=== PATIENT | female | born 1990 | race Caucasian/White ===

== ENCOUNTER 2017-08-26 08:35 | Emergency (ER) | payer SELFPAY ==
[2017-08-26 08:37] VITALS: BP 149/97; PULSE 100; RESP 16; TEMP 37; O2SAT 93; BMI 36.3
[2017-08-26] MEDS: Ondansetron 4 MG/2 ML Vial IV (09:11)
[2017-08-26 09:13] LABS: Absolute Lymphocyte Count 2.71 X10^3/ul (0.83-4.51); Basophil# 0.03 X10^3/uL; Basophil% 0.4 % (0-1); Eosinophils% 1.2 % (0-5); Hematocrit 39.2 % (37-47); Hemoglobin 12.3 g/dl (12.0-15.0); Lymphocyte # 2.71 X10^3/ul (4.0); Lymphocyte % 31.7 % (19-41); Mean Corp Hgb Conc 31.4 g/gl (32-36); Mean Corpuscular Hgb 25.7 pg (27.0-32.0); Mean Corpuscular Volume 81.8 fL (81-99); Mean Platelet Vol. 10.6 fl (6.2-12.0); Monocyte# 0.75 X10^3/uL; Monocyte% 8.8 % (0-10); Neutrophil # 4.95 X10^3/uL (2.7-7.7); Neutrophil % 57.8 % (47-70); Platelet Count 293 K/mm3 (150-450); RBC Distribution Width SD 44.8 fl (35.1-43.9); Red Blood Count 4.79 M/mm3 (4.2-5.4); White Blood Count 8.6 K/mm3 (4.4-11.0)
[2017-08-26 09:14] LABS: POSITIVE COUNT NO; POSITIVE DIFFERENTIAL NO; POSITIVE MORPHOLOGY NO
[2017-08-26 09:28] LABS: Anion Gap 9 (5-15); BUN 16 mg/dL (7-18); BUN/Creat Ratio 24.6 RATIO (10-20); Calcium,Total 8.7 mg/dL (8.5-10.1); Chloride 106 mmol/L (98-107); Creatinine, Serum 0.65 mg/dL (0.55-1.02); EST Glomerular Filtration Rate 116 mL/min (>60); Est Glom Filt Rate - Afr Amer 140 mL/min (>60); Estimated Creatinine Clearance 116.98 ml/min; Glucose 108 mg/dL (74-106); Potassium 4.1 mmol/L (3.5-5.1); Sodium Level 138 mmol/L (136-145)
--- NOTE | 2017-08-26 09:36 | ED.DCSUM_ITS ---
- ER Visit Summary Date of Service: 08/26/17 Chief Complaint: Left lower quadrant abdominal/inguinal pain that started 2 days ago History of Present Illness: The patient is a 27 F who presents with left lower quadrant abdominal pain/inguinal pain that started 2 days ago. She has had some pain in the low back/flank area. The pain is described as achy with moments of sharp intense pain. She denies dysuria, frequency, dysuria but does report urgency. She denies history of renal ureterolithiasis. Last menses was not normal. She is sexually active. She has been once with a miscarriage at 5 months. There is no history of endometriosis, ovarian cyst, ectopic or STD. She denies history of trauma or any skin lesions or rash. There is no history of irritable bowel syndrome, inflammatory bowel disorder or blood or mucus in her stool. She does report history of constipation. She denies history of diverticulosis diverticulitis. She denies prior episode. She denies fever, chills night sweats. She denies any ocular, visual auditory symptoms. Denies weight gain or weight loss. She denies any cardiac respiratory symptoms. Physical Examination: Vital signs are remarkable for blood pressure 149/97. Patient has a depressed affect. After I entered the room she began to cry/have tears in her eyes. Head is atraumatic normocephalic. Pupils are equal round reactive. Extraocular muscles are intact. TMs are pearly white with landmarks noted. Nares patent with no drainage. Posterior pharynx without erythema or exudate. Uvula is midline. There is no dysphonia or dysphasia. Trachea is midline. There is no stridor with auscultation of the neck. Heart is regular without murmur, gallop or rub. S1 and S2 are normal. Lungs are clear to auscultation with good movement of air bilaterally. Abdomen is remarkable for tenderness in the left lower quadrant with equivocal left CVA tenderness. There is no guarding or rebound tenderness. Bowel sounds are present diminished. There is no evidence of umbilical inguinal hernia. There is no inguinal lymphadenopathy. There are no lesions to suggest herpes varicella- zoster. Test Results: CBC is normal. BMP is essentially normal with slight elevation of glucose of 108. Urine dip positive for leukoesterase, nitrites and blood. Micro revealed pyuria with bacteria and is a good specimen. Since she complained of frequency and urgency will treat as UTI suspect subclinical pyelonephritis because she complained of left CVA tenderness. Emergency Department Course and Treatment: To evaluate patient's left lower quadrant pain will obtain test since her incision was not normal. CBC and BMP were obtained in the event that a CT needed to be performed. Urine to assess for infection and possibility of renal/ureterolithiasis. Treatment Plan: Patient received a dose of Naprosyn for her discomfort since she declined opiate analgesia. She was given Zofran for her nausea. She will receive IV Rocephin and discharged with prescription for ciprofloxacin. She was instructed to follow-up with her primary care physician Dr. Castrejon in 3 days to assure that the bacteria is sensitive to the antibiotic prescribed. Disposition: Discharged to home with spouse after infusion of Rocephin Impression: Pyelonephritis, acute This note was generated with ScaleGrid dictation software. It may contain incorrect words, spelling, and punctuation that were not noted in review of the chart prior to signing ED Disposition - Plan for ED Patient: Disposition: Home or Assisted Living Chief Complaint: Abd Pain Instructions: ED Kidney Infec Female Prescriptions: Ciprofloxacin HCl 500 mg PO BID #20 tab Naproxen [Naprosyn] 500 mg PO BID #10 tab Referrals: Care Physician,No Primary [Primary Care Provider] - Anamaria Castrejon MD [STAFF PHYSICIAN] - 3-5 Days
[2017-08-26 09:38] LABS: Pregnancy, Serum, hCG Quali. NEGATIVE Negative (0-9 Nonpreg)
[2017-08-26] MEDS: Naproxen 250 MG Tablet 500 MG PO (09:48)
[2017-08-26 09:52] LABS: Mucous, Urine 0 SEEN /hpf (<or=2+)
[2017-08-26 09:57] LABS: Color, Urine Yellow (Yellow); Glucose, Dipstick Normal (Normal); Ketone-Dipstick Negative (Negative); Leukocyte Esterase-Dipstick 100 /ul (Negative); Nitrite-Dipstick Positive (Negative); Occult Blood-Urine 10 /ul (Negative); Protein-Dipstick Negative (Negative); Specific Gravity, Urine 1.015 (1.002-1.030); Urine Bilirubin Dipstick Negative (Negative); Urine Clarity Sl. Cloudy (Clear); Urine Urobilinogen Normal (Normal)
[2017-08-26 10:11] LABS: Bacteria 2+ /hpf (None Seen); Squamous Epithelial Cells - UA 0-5 SEEN /hpf (5-10)
[2017-08-26 10:12] LABS: Red Blood Cells-Urine 0-5 SEEN /hpf (0-5); White Blood Cells 10-25 SEEN /hpf (0-5)
--- NOTE | 2017-08-26 10:46 | ED.VISSUMM ---
- ER Visit Summary Date of Service: 08/26/17 Chief Complaint: [] History of Present Illness: The patient is a 27 F [] Physical Examination: [] Test Results: [] Emergency Department Course and Treatment: [] Treatment Plan: [] Disposition: [] Impression: [] This note was generated with [employer] dictation software. It may contain incorrect words, spelling, and punctuation that were not noted in review of the chart prior to signing ED Disposition - Plan for ED Patient: Disposition: Home or Assisted Living Chief Complaint: Abd Pain Instructions: ED Kidney Infec Female Prescriptions: Ciprofloxacin HCl 500 mg PO BID #20 tab Naproxen [Naprosyn] 500 mg PO BID #10 tab Referrals: Care Physician,No Primary [Primary Care Provider] - 3-5 Days
[2017-08-26 11:30] VITALS: BP 153/89; PULSE 94; RESP 14; O2SAT 99
== END 2017-08-26 11:37 | disposition home or self-care (01) ==
PROVIDERS: Emergency Provider Emergency Medicine
DX: N10 Acute pyelonephritis (principal); R73.9 Hyperglycemia, unspecified; E66.9 Obesity, unspecified; Z72.0 Tobacco use
CPT/HCPCS: 80048; 81001; 84703; 85025; 87086; 87088; 96365; 96375; 99283; A4216; J2405; J3490

== ENCOUNTER 2018-02-12 16:17 | Emergency (ER) | payer SELFPAY ==
[2018-02-12 16:17] VITALS: BP 152/95; PULSE 117; RESP 16; TEMP 36.6; O2SAT 93; BMI 34.6
[2018-02-12] MEDS: Naproxen 500 MG Tablet PO (16:40)
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
[2018-02-12 17:42] VITALS: BP 143/90; PULSE 81; RESP 16
== END 2018-02-12 17:43 | disposition home or self-care (01) ==
LOC: ED 17:07
PROVIDERS: Emergency Provider Emergency Medicine
DX: S29.012A Strain of muscle and tendon of back wall of thorax, initial encounter (principal); S39.012A Strain of muscle, fascia and tendon of lower back, initial encounter; V43.52XA Car driver injured in collision with other type car in traffic accident, initial encounter; Y93.9 Activity, unspecified; Y92.481 Parking lot as the place of occurrence of the external cause; Y99.9 Unspecified external cause status; G80.9 Cerebral palsy, unspecified
CPT/HCPCS: 72072; 72100; 99283

== ENCOUNTER 2019-09-21 01:53 | Inpatient (IN) | payer SELFPAY ==
[2019-09-21] VITALS (10 sets, daily range): BP systolic 148–164; BP diastolic 90–101; PULSE 86–118; RESP 18–28; TEMP 35.7–37; O2SAT 88–95; BMI 35.1
--- NOTE | 2019-09-21 02:01 | ED.RN ---
CALLED FOR EKG PER RN REQUEST, PULLED OLD EKGS FOR
--- NOTE | 2019-09-21 02:18 | RAD_ITS ---
STUDY: X-RAY CHEST REASON FOR EXAM: Female, 29 years old. COUGH AND SOB X 2 days TECHNIQUE: Single AP portable view of the chest. COMPARISON: 10/19/2011. FINDINGS: There is mild scarring at the right lung base versus atelectasis. Remainder of the lungs are clear and expanded. There is no demonstrated pleural abnormality. Normal size heart. Normal mediastinum and сергей. Normal visualized pulmonary arteries. Normal visualized aortic arch and descending thoracic aorta. Normal visualized thoracic spine. Normal visualized ribs, clavicles, and shoulders. There is no demonstrated abnormality of the visualized soft tissue structures of the upper abdomen. RAD/Chest 1 View (Portable) IMPRESSION: Mild scarring versus atelectasis at the right lung base, otherwise normal x-ray examination of the chest. Electronically Signed: Felipa Morales MD at 2:58 EDT , Service support ,
--- NOTE | 2019-09-21 02:18 | EKG12_ITS ---
Test Reason : SOB Blood Pressure : / mmHG Vent. Rate : 109 BPM Atrial Rate : 109 BPM P-R Int : 126 ms QRS Dur : 078 ms QT Int : 328 ms P-R-T Axes : 076 091 046 degrees QTc Int : 441 ms Sinus tachycardia Rightward axis Borderline ECG Confirmed by GRICELDA REYES, ELIE ([id number]), acquisition editor DAMION POLANCO ([id number] on 09/27/2019 2:00:26 PM Referred By: SPRING Confirmed By:BARB MADISON MD
[2019-09-21] MEDS: Acetaminophen 500 MG Tablet 1000 MG PO (02:26)
[2019-09-21] MEDS: Ondansetron 4 MG/2 ML Vial IV ×2 (02:26→11:48)
[2019-09-21 02:27] LABS: Absolute Neutrophil Count 9.9 X10^3/uL (2.0-7.7); Basophil# 0.09 X10^3/uL; Basophil% 0.6 % (0-1); Eosinophil# 0.21 X10^3/uL; Eosinophils% 1.4 % (0-5); Hematocrit 44.5 % (37-47); Hemoglobin 13.8 g/dL (12.0-15.0); Lymphocyte % 23.2 % (19-41); Mean Corpuscular Hgb 25.2 pg (27.0-32.0); Mean Corpuscular Volume 81.4 fL (81-99); Mean Platelet Vol. 11.2 fl (6.2-12.0); Monocyte# 1.27 X10^3/uL; Monocyte% 8.4 % (0-10); NRBC Flagged by Analyzer 0 % (0-5); Neutrophil # 9.94 X10^3/uL (2.7-7.7); Neutrophil % 66.1 % (47-70); Platelet Count 338 K/mm3 (150-450); RBC Distribution Width CV 15.6 % (11.6-14.6); RBC Distribution Width SD 45.5 fl (35.1-43.9); Red Blood Count 5.47 M/mm3 (4.2-5.4); White Blood Count 15.1 K/mm3 (4.4-11.0)
--- NOTE | 2019-09-21 02:28 | ED.VISSUMM ---
- ER Visit Summary Date of Service: 09/21/19 Chief Complaint: Cough History of Present Illness: The patient is a [address] Holland. She reports that she has rhinorrhea and congestion for the past 2 days. She has had a sore throat and diaphoresis. States that she has a cough began yesterday is productive yellow sputum without blood. She denies any fever or chills. She reports that she has severe shortness of breath at worst and mild currently. Patient reports that her boyfriend at home is ill as well. 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 She denies sick contacts at work. No recent travel. Patient denies any abdominal pain. However, she has been nauseated and vomited 4 times. No blood in her emesis. Her last bowel movements today. No melena medication. Her last menstrual period was September 03. She complains of generalized weakness. Physical Examination: Vitals: 98.6, 153/101, 118, 24, 88% on room air which is hypoxic. General: Well-nourished and well-developed. Head: Normocephalic atraumatic. Neck: Supple, no lymphadenopathy. No JVD. Nontender. Cardiovascular: Tachycardic regular rhythm. No murmurs. Respiratory: Mild respiratory distress. Clear to auscultation bilaterally. Abdominal: Soft, nontender, nondistended, normal bowel sounds. No guarding, rebound, or peritoneal signs. Back: Nontender. Extremities: Nontender, no edema. Skin: Normal color, no rash. Neurologic: Alert and oriented ?3. Cranial nerves II through XII are intact. Normal strength and sensation. Psych: Normal affect. Test Results: EKG is sinus tach at [address] changes. Influenza is negative. test is negative. Chem-7 shows a chloride of 109, BUN of 20, glucose 147. CBC shows a white count of 15.1. Clinical Impression(s) from Imaging Studies Chest X-Ray 09/21/19 02:18 IMPRESSION: Mild scarring versus atelectasis at the right lung base, otherwise normal x-ray examination of the chest. Electronically Signed: Felipa Morales MD at 2:58 EDT , Service support , Emergency Department Course and Treatment: Patient had an IV placed. She was given Zofran IV. She was given Tylenol p.o. She was placed on 2 L nasal cannula and her pulse ox is currently 94%. She is resting more comfortably. Treatment Plan: Patient has been working, but only known sick contact is her boyfriend. However, there is concerned that she may have been exposed to COVID-19. She is hypoxic and will be admitted to the hospital for further evaluation and treatment. Disposition: Admitted in improved condition. Impression: 1. URI. 2. Hypoxia. 3. Suspected COVID-19. This note was generated with [employer] dictation software. It may contain incorrect words, spelling, and punctuation that were not noted in review of the chart prior to signing ED Disposition - Plan for ED Patient: Disposition: Acute [facility]
[2019-09-21 02:44] LABS: Anion Gap 7 (5-15); BUN 20 mg/dL (7-18); BUN/Creat Ratio 25.6 RATIO (10-20); Calcium,Total 9.3 mg/dL (8.5-10.1); Chloride 109 mmol/L (98-107); Creatinine, Serum 0.78 mg/dL (0.55-1.02); EST Glomerular Filtration Rate 93 mL/min (>60); Est Glom Filt Rate - Afr Amer 112 mL/min (>60); Estimated Creatinine Clearance 95.76 ml/min; Glucose 147 mg/dL (74-106); Potassium 4.2 mmol/L (3.5-5.1); Sodium Level 138 mmol/L (136-145)
[2019-09-21 02:49] LABS: Internal QC Validated? YES +Cl - CLEAR BKGD; Lactic Acid 1.1 mmol/L (0.4-1.9); Pregnancy, Serum, hCG Quali. NEGATIVE Negative
--- NOTE | 2019-09-21 03:23 | HP.PCM_ITS ---
Problem List (1) Viral illness Status: Acute History of Present Illness Date of Admission: 09/21/19 Chief Complaint: shortness The patient is a 29 year old F with a significant history of tobacco abuse; cerebral palsy; hydrocephalus; obesity and GERD who presents at the emergency department with progressively worsening shortness of breath that started few hours before presentation. In the last 2 days she had nasal congestion; rhinorrhea; sore throat; night sweats; nausea and vomiting as well as productive cough. Cough is productive occasionally for yellow sputum. She describes her vomiting as posttussive emesis. At emergency department patient was found to be hypoxic with oxygen saturation of 88% with ambulation. Oxygen saturation improved to 95% with 2 L of oxygen at rest. Chest x-ray showed mild scarring versus atelectasis at the right lung base. 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 Her boyfriend has similar symptoms except that her boyfriend has not had shortness of breath. Patient lives in [place], [place]. She denies any recent travel. She denies knowingly coming in to contact with anybody with COVID 19 virus. Past Medical History Medical History: Medical History (Last Reviewed 09/21/19 @ 04:[address] Doug Bonner MD) Cerebral palsy G80.9 Hydrocephalus G91.9 Allergies Opioids - Morphine Analogues Adverse Reaction (Verified 09/21/19 02:01) Nausea/Vom/Diarrhea Home Medications: Ambulatory Orders Medication Instructions Recorded Omeprazole Magnesium [Prilosec Otc] 20 mg PO DAILY 09/21/19 Surgical History: cholecystectomy, - - Elbow surgery Lives: Alone Smoking Status: Current every day smoker Tobacco Use: Cigarettes - *Family History Maternal History Items: Heart Disease, - - Narcolepsy Paternal History Items: - - Patient does not know paternal medical history Review of Systems Constitutional: Reports: Anorexia, Chills, Malaise. Denies: Fever, Weight Change HEENT: Reports: Sinus Congestion, Sinus Drainage, Sore Throat. Denies: Head Aches Cardiovascular: Denies: Chest Pain, Palpitations Respiratory: Reports: Cough, Shortness of Breath, Sputum production Gastrointestinal: Reports: Nausea, Vomiting. Denies: Abdominal Pain Genitourinary: Denies: Dysuria Musculoskeletal: Denies: Joint Pain, Joint Tenderness Skin: Denies: Rash, Wounds Neurological: Denies: Numbness, Tingling, Focal weakness Psychiatric: Reports: Anxiety. Denies: Depression, Homicidal Ideations, Suicidal Ideations Hematologic/ Lymphatic: Denies: Easy Bruising, Easy Bleeding VTE Information - Inpt Only VTE Present on Admission: No VTE Mechan Device Prophylaxis: SCD's, None VTE Pharm Prophylaxis ordered?: No Patient Problems: Active and Suspected Problems (Last Updated 09/21/19 @ 04:[address] Doug Bonner MD) Viral illness (Acute) - Physical Exam Vitals/I&O's: Vital Signs Temp Pulse Resp BP Pulse Ox 98.6 F 111 H 28 H 163/92 H 95 09/21/19 02:02 09/21/19 02:02 09/21/19 02:06 09/21/19 02:02 09/21/19 02:06 Oxygen Flow Rate (L/min) 3 Oxygen Delivery Method Nasal Cannula Weight: 95.8 kg Body Mass Index (BMI) 35.1 General: Alert, Oriented x3, Cooperative HEENT: Atraumatic, PERRLA, EOMI, Normocephalic Neck: Supple, No JVD, Negative Carotid Bruits Lungs: Clear to auscultation, Normal air movement Cardiovascular: Normal S1, Normal S2, No murmurs, Tachycardic Abdomen: Bowel Sounds Present, Soft, Non Tender Extremities: No edema, Capillary Refill Less than 3 Seconds Skin: No rashes, No breakdown Musculoskeletal: No Tenderness to Palpation of Joints or Extremities Neurological: Cranial nerves II-XII grossly intact Psych/Mental Status: Normal Affect, Appropriate Microbiology Past 72 Hours 09/21/19 02:25 Mucosa - Nose Influenza Types A,B Direct FA (JOSÉ LUIS) - Final Laboratory Results 09/21/19 02:12: WBC 15.1 H, RBC 5.47 H, Hgb 13.8, Hct 44.5, MCV 81.4, MCH 25.2 L , MCHC 31.0 L, RDW Std Deviation 45.5 H, RDW Coeff of Margarita 15.6 H, Plt Count 338, MPV 11.2, Immature Gran % (Auto) 0.300, Neut % (Auto) 66.1, Lymph % (Auto) 23.2, [place] % (Auto) 8.4, Eos % (Auto) 1.4, Baso % (Auto) 0.6, Absolute Neuts (auto) 9.9 H, Absolute Lymphs (auto) 3.50, Nucleated RBC % 0 09/21/19 02:12: Sodium 138, Potassium 4.2, Chloride 109 H, Carbon Dioxide 22.0, Anion Gap 7, BUN 20 H, Creatinine 0.78, Estim Creat Clear Calc 95.76, Est GFR (MDRD) Af Amer 112, Est GFR (MDRD) Non-Af 93, BUN/Creatinine Ratio 25.6 H, Glucose 147 H, Calcium 9.3 09/21/19 02:12: Lactic Acid 1.1 09/21/19 02:12: Serum , Qual NEGATIVE Assessment/Plan All Active Problems (Last Updated 09/21/19 @ 04:[address] Doug Bonner MD) Viral illness (Acute) The patient is a 29 year old F with a significant history of tobacco abuse; cerebral palsy; hydrocephalus; obesity and GERD presents emergency department with progressively worsening shortness of breath that started few hours before presentation; nasal congestion; rhinorrhea; sore throat; nausea and vomiting; productive cough; hypoxia; and chest x-ray finding of atelectasis versus scarring consistent with acute viral illness. Acute viral illness Cannot rule out COVID 19 at this time. Rapid influenza screen at emergency department was negative. A comprehensive viral PCR is pending. We will get a ferritin level; triglyceride and procalcitonin level. Consider COVID 19 testing if a comprehensive viral PCR is negative and other markers point towards COVID 19 Symptomatic treatment with Mucinex; oxygen supplementation as needed. Incentive spirometer ordered Tylenol PRN and antiemetics PRN with Zofran. Trend CBC and BMP We will admit to covid19 cohorts floor on droplet precautions. GERD PPI continued Obesity: Complicates care. Recommend lifestyle modification. DVT prophylaxis Subcutaneous Lovenox Essential Procedure Criteria Procedure Essential: No Inpatient E&M: 30422 Init Hosp L3
[2019-09-21 04:21] LABS: Ferritin 45 ng/mL (8-252); Triglycerides 246 mg/dL
[2019-09-21 04:27] LABS: Procalcitonin 0.09 ng/mL (0.00-0.09)
[2019-09-21] MEDS: guaiFENesin 1,200 MG Tablet 1200 MG PO ×2 (05:24→09:27)
--- NOTE | 2019-09-21 09:14 | CASEMGMT ---
Social Work Note Pt is listed as self-pay. SW reviewed chart. 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 PFS saw pt. Per PFS, pt declined self-pay program, pt was provided HCAP application and pt is not eligible for medicaid. SW to continue to follow if any financial needs arise. Esthela James HOME STEREO EQUIPMENT INSTALLER, HI LIFT OPERATOR
[2019-09-21] MEDS: Acetaminophen 325 MG Tablet 650 MG PO (09:27)
[2019-09-21] MEDS: Pantoprazole Sodium 20 MG Tablet PO (09:27)
[2019-09-21] MEDS: 0.9% Saline Lock 10 ML Syringe IV (11:48)
--- NOTE | 2019-09-21 12:56 | CASEMGMT ---
RN CM ASSESSMENT Pt in isolation precautions. RN CM assessment completed via phone call to pt at this time. Introduced self and role of RN CM and pt agreeable to assessment at this time. PCP: Dr Holland Specialists: None Preferred Pharmacy: [facility] Retail Insurance: None. Pt has been seen by PFS. Prescription Benefit: None. Prescription Discount card given to pt's RNNelly, to give to pt. Living Will/HPOA: States does not have LW or HCPOA . Pt made Given Social Service rac card to RNNelly, to give to pt with number to call if chooses in the future to utilize [facility] social work for advanced directive completion. LNOK: Mother, Myriam Lou Living Arrangements: Lives with her BF and her BF's daughter in 2-story apartment. Was independent prior to hospitalization. 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 Transportation: Pt states drives self and states no transportation concerns at this time. DME: Denies using any DME and denies needs. HHC/SNF: No history of either. Pt wishes to return home and states has no concerns with going home at time of discharge. CM to follow for home oxygen needs and any further discharge planning/needs. Pt voices no further concerns/needs at this time. Advised pt to ask for CM if any further questions/concerns/needs arise. Voices understanding. PLAN: Home Follow for cost of meds @ discharge as pt does not have prescription coverage. Luz Marina HUDDLESTON RN CM
--- NOTE | 2019-09-21 13:11 | DCINST_ITS ---
- Discharge Diagnoses Current Active Problems: Current Active and Chronic Problems (Last Reviewed 09/21/19 @ 04:[address] Doug Bonner MD) Viral illness (Acute) You will use the following diet at home:: Regular Your food should be the consistency of: Regular Discharge Activity: Return to Normal Activity Weight Bearing Status: Full weight bearing Call your doctor if you observe: Fever of 101 or Higher, Shortness of breath, Dizziness, Fainting spells, Chest pain, Increased palpitations (irregular heartbeat), Uncontrolled pain Instructions: ED URI Viral Allergies/Adverse Reactions: Allergies Opioids - Morphine Analogues Adverse Reaction (Verified 09/21/19 02:01) Nausea/Vom/Diarrhea Medications to take at Discharge Omeprazole Magnesium [Prilosec Otc] 20 mg PO DAILY 09/21/19 Primary Care Physician: Tima Holland MD [Primary Care Provider] - Please follow up with your Primary Care Physician in: 1-2 weeks. Test Results: Test results from this visit will be discussed in further detail at your follow- up appointment, if applicable.
--- NOTE | 2019-09-21 14:30 | CON.PCM_ITS ---
Problem List (1) Viral illness Status: Acute Reason for Consult: fever Consulted by: Dr. Ortiz History of Present Illness: The patient is a 29 year old F with cerebral palsy, presented last night with several days of congestion, cough, chills, not feeling well. No myalgias. Boyfriend with similar sx. No myalgias. Developed new dyspnea, came to ED, admitted for possible covid. PCR showed rhinovirus. Feeling a little better today, dyspnea resolved. Full ROS performed and neg except as noted above. - Medical History Surgical History: reviewed Allergies/Adverse Reactions: Allergies Opioids - Morphine Analogues Adverse Reaction (Verified 09/21/19 02:01) Nausea/Vom/Diarrhea Home Medications: Ambulatory Orders Medication Instructions Recorded Omeprazole Magnesium [Prilosec Otc] 20 mg PO DAILY 09/21/19 - Social History Tobacco Use: cigarettes Vital Signs Temp Pulse Resp BP Pulse Ox 96.3 F L 99 18 153/92 H 94 09/21/19 11:49 09/21/19 11:49 09/21/19 11:49 09/21/19 11:49 09/21/19 11:49 Oxygen Flow Rate (L/min) 94 Oxygen Delivery Method Room Air Weight: 95.8 kg Body Mass Index (BMI) 35.1 Microbiology Past 72 Hours 09/21/19 02:25 Respiratory Panel (PCR) - Final Mucosa - Nose Rhinovirus 09/21/19 02:25 Influenza Types A,B Direct FA (JOSÉ LUIS) - Final Mucosa - Nose Laboratory Tests Past 24 Hrs 09/21/19 09/21/19 09/21/19 02:12 02:12 02:12 WBC 15.1 H RBC 5.47 H Hgb 13.8 Hct 44.5 MCV 81.4 MCH 25.2 L MCHC 31.0 L RDW Std Deviation 45.5 H RDW Coeff of Margarita 15.6 H Plt Count 338 MPV 11.2 Immature Gran % (Auto) 0.300 Neut % (Auto) 66.1 Lymph % (Auto) 23.2 [place] % (Auto) 8.4 Eos % (Auto) 1.4 Baso % (Auto) 0.6 Absolute Neuts (auto) 9.9 H Absolute Lymphs (auto) 3.50 Nucleated RBC % 0 Sodium 138 Potassium 4.2 Chloride 109 H Carbon Dioxide 22.0 Anion Gap 7 BUN 20 H Creatinine 0.78 Estim Creat Clear Calc 95.76 Est GFR (MDRD) Af Amer 112 Est GFR (MDRD) Non-Af 93 BUN/Creatinine Ratio 25.6 H Glucose 147 H Lactic Acid 1.1 Calcium 9.3 Ferritin Triglycerides Procalcitonin Serum , Qual COVID-19 (KIRSTIN) 09/21/19 09/21/19 09/21/19 02:12 02:25 02:25 WBC RBC Hgb Hct MCV MCH MCHC RDW Std Deviation RDW Coeff of Margarita Plt Count MPV Immature Gran % (Auto) Neut % (Auto) Lymph % (Auto) [place] % (Auto) Eos % (Auto) Baso % (Auto) Absolute Neuts (auto) Absolute Lymphs (auto) Nucleated RBC % Sodium Potassium Chloride Carbon Dioxide Anion Gap BUN Creatinine Estim Creat Clear Calc Est GFR (MDRD) Af Amer Est GFR (MDRD) Non-Af BUN/Creatinine Ratio Glucose Lactic Acid Calcium Ferritin 45 Triglycerides 246 H Procalcitonin 0.09 Serum , Qual NEGATIVE COVID-19 (KIRSTIN) 09/21/19 08:40 WBC RBC Hgb Hct MCV MCH MCHC RDW Std Deviation RDW Coeff of Margarita Plt Count MPV Immature Gran % (Auto) Neut % (Auto) Lymph % (Auto) [place] % (Auto) Eos % (Auto) Baso % (Auto) Absolute Neuts (auto) Absolute Lymphs (auto) Nucleated RBC % Sodium Potassium Chloride Carbon Dioxide Anion Gap BUN Creatinine Estim Creat Clear Calc Est GFR (MDRD) Af Amer Est GFR (MDRD) Non-Af BUN/Creatinine Ratio Glucose Lactic Acid Calcium Ferritin Triglycerides Procalcitonin Serum , Qual COVID-19 (KIRSTIN) Cancelled - Other Studies Radiology: [] reviewed Other Studies: [] Route of nutrition/ use of supplements: [] Nutritional Intake: [] IV Site: [] Abdi Catheter: [] - Physical Exam General: Alert, Oriented x3, Cooperative, No apparent distress HEENT: Atraumatic, PERRLA, EOMI Neck: Supple, No Nodes Lungs: Clear to auscultation, Normal air movement Cardiovascular: Regular rate, Regular Rhythm Abdomen: Soft, Non Tender, Non-Distended Extremities: No edema Skin: No rashes IV Site: Peripheral, without redness Musculoskeletal: No Tenderness to Palpation of Joints or Extremities Neurological: Cranial nerves II-XII grossly intact - Assessment/Plan Antibiotics: [] Assessment/Plan: [] rhinovirus URI - feeling better, no need for covid testing given her symptoms, improvement, and (+) pcr. Recommend discharge home. Will follow as needed, thank you, d/w Dr. Ortiz.
--- NOTE | 2019-09-21 14:38 | DS.PCM_ITS ---
Discharge Date and Diagnosis Date of Admission: 09/21/19 Date of Discharge: 09/21/19 - Primary Discharge Diagnosis #1 URTI due to rhinovirus. #2 transient hypoxia, resolved. Hospital Course and Treatment Imaging Results: Clinical Impression(s) from Imaging Studies Chest X-Ray 09/21/19 02:18 IMPRESSION: Mild scarring versus atelectasis at the right lung base, otherwise normal x-ray examination of the chest. Electronically Signed: Felipa Morales MD at 2:58 EDT , Service support , Dr. Bull, infectious disease. Operations: None Procedures: None Summary of Care Provided: Patient seen and examined on the day of discharge and appeared to be stable to be discharged home. Shortness of breath improved and she remained afebrile. Her pulse ox improved and she remained on room air. The patient is a 29 year old F presented to the emergency room because of cough, sinus congestion and rhinorrhea for 2 days as well as sore throat. Her chest x- ray revealed atelectasis versus lung scarring on the right base, otherwise clear and no evidence of acute infiltrate or consolidation. Routine blood work was remarkable for leukocytosis, otherwise normal. Lactic acid was normal. Patient denied any recent travel or sick contacts. She was treated symptomatically with Tylenol and antitussives. She remained afebrile. In the emergency department, patient was dyspneic and her pulse ox was 88% on room air. After admission, symptoms improved and her pulse ox was around 94% on room air. Nasal swab for influenza a and B was negative. Respiratory panel for viruses was positive for rhinovirus. Patient felt better. There was no indication to do COVID-19 TESTING. Infectious disease consulted and recommended that there is NO indication to do COVID-29 testing as her symptoms improved and tested positive for Rhinovirus. Patient discharged home in a stable condition, no medications prescribed upon discharge, recommended to abide with stay home orders, recommended follow-up with PCP in 1 to 2 weeks. - Physical Exam Vitals/I&O's: Vital Signs Temp Pulse Resp BP Pulse Ox 96.3 F L 99 18 153/92 H 94 09/21/19 11:49 09/21/19 11:49 09/21/19 11:49 09/21/19 11:49 09/21/19 11:49 Oxygen Flow Rate (L/min) 94 Oxygen Delivery Method Room Air Weight: 211 lb 3.245 oz Body Mass Index (BMI) 35.1 Intake and Output for Last 24 Hours 09/19/19 09/20/19 09/21/19 23:59 23:59 23:59 Intake Total 550 / 550 Balance 550 / 550 General: Alert, Oriented x3, Cooperative, No apparent distress HEENT: Atraumatic, PERRLA, EOMI, Normocephalic Oral: Moist Mucosa, No Gingival or Mucosal Lesions/ Ulcerations Neck: Supple, No JVD, Negative Carotid Bruits, Trachea Midline, Thyroid Normal Size and Texture Lungs: Clear to auscultation, Normal air movement, No rhonchi, No wheeze, No rales, Diminished Cardiovascular: Regular rate, Regular Rhythm, Normal S1, Normal S2, PMI Normal Abdomen: Bowel Sounds Present, Soft, Non Tender, Non-Distended, No Hepato- splenomegaly, Obese Extremities: No clubbing, No cyanosis, No edema Skin: No rashes, No breakdown Lymphatic: No Cervical, Supraclavicular, or Inguinal Adenopathy Neurological: Cranial nerves II-XII grossly intact, Neuro grossly intact Psych/Mental Status: Normal Affect, Appropriate Microbiology Past 72 Hours 09/21/19 02:25 Mucosa - Nose Respiratory Panel (PCR) - Final Rhinovirus 09/21/19 02:25 Mucosa - Nose Influenza Types A,B Direct FA (JOSÉ LUIS) - Final Laboratory Results 09/21/19 02:12: WBC 15.1 H, RBC 5.47 H, Hgb 13.8, Hct 44.5, MCV 81.4, MCH 25.2 L , MCHC 31.0 L, RDW Std Deviation 45.5 H, RDW Coeff of Margarita 15.6 H, Plt Count 338, MPV 11.2, Immature Gran % (Auto) 0.300, Neut % (Auto) 66.1, Lymph % (Auto) 23.2, [place] % (Auto) 8.4, Eos % (Auto) 1.4, Baso % (Auto) 0.6, Absolute Neuts (auto) 9.9 H, Absolute Lymphs (auto) 3.50, Nucleated RBC % 0 09/21/19 02:12: Sodium 138, Potassium 4.2, Chloride 109 H, Carbon Dioxide 22.0, Anion Gap 7, BUN 20 H, Creatinine 0.78, Estim Creat Clear Calc 95.76, Est GFR (MDRD) Af Amer 112, Est GFR (MDRD) Non-Af 93, BUN/Creatinine Ratio 25.6 H, Glucose 147 H, Calcium 9.3 09/21/19 02:12: Lactic Acid 1.1 09/21/19 02:12: Serum , Qual NEGATIVE 09/21/19 02:25: Ferritin 45, Triglycerides 246 H 09/21/19 02:25: Procalcitonin 0.09 09/21/19 08:40: COVID-19 (KIRSTIN) Cancelled Discharge Activity: Return to Normal Activity Weight Bearing Status: Full weight bearing Call your doctor if you observe: Fever of 101 or Higher, Shortness of breath, Dizziness, Fainting spells, Chest pain, Increased palpitations (irregular heartbeat), Uncontrolled pain Home Medications: Medications to take at Discharge Omeprazole Magnesium [Prilosec Otc] 20 mg PO DAILY 09/21/19 Primary Care Physician: Tima Holland MD [Primary Care Provider] - Please follow up with your Primary Care Physician in: 1-2 weeks. Patient Instructions: ED URI Viral Disposition: Home Minutes spent on discharge:: 25 Patient Condition:: Stable Medical Necessity - Tobacco Use Smoking Status: Current every day smoker Tobacco Use: Cigarettes Meaningful Use Info Meaningful Use Diagnoses (Choose all that apply): None applicable OBSV E&M: 96617 Observ/hosp same date L2
== END 2019-09-21 14:10 | disposition home or self-care (01) | DRG 153 ==
LOC: ED 02:40 → MS2 04:15
PROVIDERS: Admitting Provider Hospitalist; Emergency Provider Emergency Medicine; PCP Family Medicine; Visit Provider Hospitalist
DX: J06.9 Acute upper respiratory infection, unspecified (principal); B97.89 Other viral agents as the cause of diseases classified elsewhere; R09.02 Hypoxemia; G80.9 Cerebral palsy, unspecified; K21.9 Gastro-esophageal reflux disease without esophagitis; E66.9 Obesity, unspecified; Z68.35 Body mass index [BMI] 35.0-35.9, adult; F17.210 Nicotine dependence, cigarettes, uncomplicated
CPT/HCPCS: 36415; 71045; 80048; 82728; 83605; 84145; 84478; 84703; 85025; 87040; 87633; 87635; 87804; 93005; 99285; J7030; A4216; J2405; U0004

== ENCOUNTER 2020-02-18 21:51 | Emergency (ER) | payer SELFPAY ==
[2019-09-21 04:41] VITALS: BMI 35.1
[2020-02-18 21:52] VITALS: BP 154/127; PULSE 106; RESP 22; TEMP 36.6; O2SAT 97; BMI 35.4
--- NOTE | 2020-02-18 22:14 | EKG12_ITS ---
Test Reason : DYSRHYTHMIA Blood Pressure : / mmHG Vent. Rate : 076 BPM Atrial Rate : 076 BPM P-R Int : 154 ms QRS Dur : 074 ms QT Int : 378 ms P-R-T Axes : 072 095 044 degrees QTc Int : 425 ms Normal sinus rhythm Rightward axis Borderline ECG Confirmed by ARMANDO REYES, LISBETH ([id number]), movie editor MICHELLE LIN ([id number]) on 02/20/2020 2:07:13 PM Referred By: FARAZ Confirmed By:LISBETH ROBERTS MD
--- NOTE | 2020-02-18 22:14 | CT_ITS ---
HISTORY: CONFUSION, DIZZY, EMESIS X 2 WEEKS, STARTED NEW MEDICATION 1 MONTH AGO, HX CEREBRAL PALSY, HOLE IN HEART CHILD COMPARISON: 08/28/2013 TECHNIQUE: Helical CT axial images are obtained from the base of skull through the vertex without IV contrast. Multiplanar reconstruction. A radiation dose optimization technique was used for this scan. # of images incl. paperwork: 231 FINDINGS: BRAIN: No parenchymal hemorrhage, infarct, intra-axial mass, mass effect, or midline shift. No abnormal extra-axial fluid collections. VENTRICLES: Mild asymmetry of the lateral ventricles, with right greater than left, unchanged. No hydrocephalus. CALVARIUM: Bone windows show no skull fracture or calvarial lesions. PARANASAL SINUSES AND MASTOIDS: Visualized paranasal sinuses are clear. Mastoid air cells are clear. CT/Brain/Head without Contrast IMPRESSION: 1. No acute intracranial disease. Stable exam. Individualized dose optimization techniques were used for this CT. at 0019 Reported and signed by: Keven Cruz MD Electronically Signed: Keven Cruz MD at 0:18 EDT Tel , Service support ,
--- NOTE | 2020-02-18 22:15 | ED.VIS.GEN ---
History of Present Illness Chief Complaint: Confusion Informant: Patient Onset: Weeks Context: Gradual Onset Timing: Intermittent Narrative: Patient presents secondary to intermittent episodes of confusion. She states that she will have just a blank stare on her face and feels like her slate was wiped clean. She will not know where she is or what she is doing. This will last for a couple of moments and then she will come to come back around. It does not sound like she is having syncope during these episodes. No one has described seizure activity. Patient states today she developed some dizziness which she described as lightheadedness along with vomiting with 1 of the episodes. Symptoms been ongoing for the past 2 weeks. She started taking Topamax 1 month ago and assumed that it was secondary to the medication. She thought as she got used to the medication the symptoms would improve, but they continued to become more frequent. - Past Medical History (1) Hydrocephalus Status: Chronic (2) Cerebral palsy Status: Chronic (3) GERD (gastroesophageal reflux disease) Status: Chronic Past Medical History - Allergies and Home Meds Allergies/Adverse Reactions: Allergies Opioids - Morphine Analogues Adverse Reaction (Verified 02/18/20 21:55) Nausea/Vom/Diarrhea Primary Care Physician: Tima Holland MD [Primary Care Provider] - Tima Lee MD [NON-STAFF] - As soon as possible Prior records reviewed: Yes Surgical History: cholecystectomy, - - Elbow surgery Lives: Spouse/ Significant Other Smoking Status: Current every day smoker - Family History Maternal Family History: Reports: Heart Disease, - - Narcolepsy Paternal Family History: Reports: - - Patient does not know paternal medical history Review of Systems General: Denies: Chills, Fever Eyes: Denies: Visual changes - bilaterally ENT: Denies: Bilateral ear pain Cardiovascular: Denies: Chest pain, Palpitations Respiratory: Denies: Dyspnea, Cough Gastrointestinal: Reports: Nausea, Vomiting. Denies: Abdominal pain Genitourinary: Denies: Dysuria Musculoskeletal: Denies: Swelling, Extremity Pain Skin: Denies: Rash Neurological: Denies: Headache, Weakness, Parasthesia Hematologic: Denies: Easy bruising, Easy bleeding Allergy: Denies: Uticaria Physical Exam Vital Signs/Narrative: Vital Signs Temp Pulse Resp BP Pulse Ox 02/18/20 21:52 97.8 F 106 H 22 H 154/127 H 97 Inital Vital Signs reviewed: Yes General: Well nourished, Well developed Head: Normocephalic ENT: Moist mucous membranes Neck: Supple Cardiovascular: Regular rate, Regular rhythm Respiratory: No distress, CTA bilaterally Abdomen: Soft, Nontender, Normal bowel sounds Extremities: Nontender Skin: Normal color Neurological: Alert, Oriented x3, Normal Strength, Normal Sensation Psychological: Normal affect Diagnostic/Tx/Re-eval Impressions Brain CT 02/18/20 22:14 IMPRESSION: 1. No acute intracranial disease. Stable exam. Individualized dose optimization techniques were used for this CT. at 0019 Reported and signed by: Keven Cruz MD Electronically Signed: Keven Cruz MD at 0:18 EDT Tel , Service support , 02/18/20 22:14 Brain/Head without Contrast [CT] Stat Laboratory Results 02/18/20 02/18/20 02/18/20 22:34 22:34 22:34 WBC 9.7 RBC 4.74 Hgb 11.8 L Hct 39.2 MCV 82.7 MCH 24.9 L MCHC 30.1 L RDW Std Deviation 48.6 H RDW Coeff of Margarita 16.1 H Plt Count 313 MPV 11.8 Immature Gran % (Auto) 0.400 Neut % (Auto) 47.0 Lymph % (Auto) 41.2 H [place] % (Auto) 9.1 Eos % (Auto) 1.6 Baso % (Auto) 0.7 Absolute Neuts (auto) 4.6 Absolute Lymphs (auto) 4.00 Nucleated RBC % 0 Sodium 140 Potassium 3.7 Chloride 112 H Carbon Dioxide 20.0 L Anion Gap 8 BUN 22 H Creatinine 0.76 Estim Creat Clear Calc 94.32 Est GFR (MDRD) Af Amer 116 Est GFR (MDRD) Non-Af 96 BUN/Creatinine Ratio 29.1 H Glucose 96 Calcium 8.7 Serum , Qual NEGATIVE Urine Color Urine Clarity Urine pH Ur Specific [place] Urine Protein Urine Glucose (UA) Urine Ketones Urine Occult Blood Urine Nitrite Urine Bilirubin Urine Urobilinogen Ur Leukocyte Esterase Urine RBC Urine WBC Ur Squamous Epith Cells Amorphous Sediment Urine Bacteria Urine Mucus 02/18/20 23:57 WBC RBC Hgb Hct MCV MCH MCHC RDW Std Deviation RDW Coeff of Margarita Plt Count MPV Immature Gran % (Auto) Neut % (Auto) Lymph % (Auto) [place] % (Auto) Eos % (Auto) Baso % (Auto) Absolute Neuts (auto) Absolute Lymphs (auto) Nucleated RBC % Sodium Potassium Chloride Carbon Dioxide Anion Gap BUN Creatinine Estim Creat Clear Calc Est GFR (MDRD) Af Amer Est GFR (MDRD) Non-Af BUN/Creatinine Ratio Glucose Calcium Serum , Qual Urine Color Yellow Urine Clarity Clear Urine pH 6.5 Ur Specific [place] 1.015 Urine Protein Negative Urine Glucose (UA) Normal Urine Ketones Negative Urine Occult Blood Negative Urine Nitrite Negative Urine Bilirubin Negative Urine Urobilinogen Normal Ur Leukocyte Esterase 500 H Urine RBC 0-5 SEEN Urine WBC 5-10 SEEN Ur Squamous Epith Cells 5-10 SEEN Amorphous Sediment RARE Urine Bacteria 2+ Urine Mucus 0 SEEN - EKG Initial EKG Interpretation: Sinus Rhythm - Sinus at 76 with no acute ischemia. - Medical Decision Making Patient is resting comfortably on repeat examination. Test results are discussed with her. Hydrocephalus is unchanged when compared to prior studies. Electrolytes are unremarkable. I did recommend she go back down to 1 pill of Topamax at night set of 2 and call her neurologist on Thursday morning. She is agreeable with this plan. Blood pressure at time of discharge is 124/89. ED Disposition - Plan for ED Patient: Disposition: Home or Assisted Living Diagnosis: Medication side effect Instructions: ED ADVERSE DRUG REACTION Allergic, ED Confusion Referrals: Tima Holland MD [Primary Care Provider] - Tima Lee MD [NON-STAFF] - As soon as possible
--- NOTE | 2020-02-18 22:18 | ED.RN ---
ATTEMPTED TO CALL RESP ABOUT EKG, NO ANSWER ON [id number]
[2020-02-18 22:29] VITALS: PULSE 74; RESP 14; O2SAT 99
[2020-02-18] MEDS: 0.9% Normal Saline 1,000 ML 150 ML IV (22:33)
[2020-02-18 22:50] LABS: Absolute Neutrophil Count 4.6 X10^3/uL (2.0-7.7); Basophil# 0.07 X10^3/uL; Basophil% 0.7 % (0-1); Eosinophil# 0.16 X10^3/uL; Eosinophils% 1.6 % (0-5); Hematocrit 39.2 % (37-47); Hemoglobin 11.8 g/dL (12.0-15.0); Lymphocyte % 41.2 % (19-41); Mean Corp Hgb Conc 30.1 g/dL (32-36); Mean Corpuscular Hgb 24.9 pg (27.0-32.0); Mean Corpuscular Volume 82.7 fL (81-99); Mean Platelet Vol. 11.8 fl (6.2-12.0); Monocyte# 0.88 X10^3/uL; Monocyte% 9.1 % (0-10); NRBC Flagged by Analyzer 0 % (0-5); Neutrophil # 4.56 X10^3/uL (2.7-7.7); Platelet Count 313 K/mm3 (150-450); RBC Distribution Width CV 16.1 % (11.6-14.6); RBC Distribution Width SD 48.6 fl (35.1-43.9); Red Blood Count 4.74 M/mm3 (4.2-5.4); White Blood Count 9.7 K/mm3 (4.4-11.0)
[2020-02-18 22:52] LABS: Internal QC Validated? YES +Cl - CLEAR BKGD; Pregnancy, Serum, hCG Quali. NEGATIVE Negative
[2020-02-18 22:55] LABS: Anion Gap 8 (5-15); BUN 22 mg/dL (7-18); BUN/Creat Ratio 29.1 RATIO (10-20); Calcium,Total 8.7 mg/dL (8.5-10.1); Chloride 112 mmol/L (98-107); Creatinine, Serum 0.76 mg/dL (0.55-1.02); EST Glomerular Filtration Rate 96 mL/min (>60); Est Glom Filt Rate - Afr Amer 116 mL/min (>60); Estimated Creatinine Clearance 94.32 ml/min; Glucose 96 mg/dL (74-106); Potassium 3.7 mmol/L (3.5-5.1); Sodium Level 140 mmol/L (136-145)
[2020-02-19 00:02] LABS: Mucous, Urine 0 SEEN /hpf (<or=2+)
[2020-02-19 00:07] LABS: Color, Urine Yellow (Yellow); Glucose, Dipstick Normal (Normal); Ketone-Dipstick Negative (Negative); Leukocyte Esterase-Dipstick 500 /ul (Negative); Nitrite-Dipstick Negative (Negative); Occult Blood-Urine Negative /ul (Negative); Protein-Dipstick Negative (Negative); Specific Gravity, Urine 1.015 (1.002-1.030); Urine Bilirubin Dipstick Negative (Negative); Urine Clarity Clear (Clear); Urine Urobilinogen Normal (Normal); Urine pH 6.5 (5.0 - 8.0)
[2020-02-19 00:11] LABS: Red Blood Cells-Urine 0-5 SEEN /hpf (0-5); White Blood Cells 5-10 SEEN /hpf (0-5)
[2020-02-19 00:12] LABS: Amorphous Sediment RARE; Bacteria 2+ /hpf (None Seen)
[2020-02-19 00:14] LABS: Squamous Epithelial Cells - UA 5-10 SEEN /hpf (5-10)
[2020-02-19 00:38] VITALS: BP 116/85; PULSE 76; RESP 27; O2SAT 97
== END 2020-02-19 00:40 | disposition home or self-care (01) ==
PROVIDERS: Emergency Provider Emergency Medicine; PCP Family Medicine
DX: R41.0 Disorientation, unspecified (principal); T42.6X5A Adverse effect of other antiepileptic and sedative-hypnotic drugs, initial encounter; K21.9 Gastro-esophageal reflux disease without esophagitis; G80.9 Cerebral palsy, unspecified; G91.9 Hydrocephalus, unspecified; F17.200 Nicotine dependence, unspecified, uncomplicated
CPT/HCPCS: 70450; 80048; 81001; 84703; 85025; 93005; 96360; 96361; 99284; J7030

== ENCOUNTER 2020-02-20 14:18 | Emergency (ER) | payer SELFPAY ==
[2020-02-20 14:19] VITALS: BP 154/109; PULSE 102; RESP 16; TEMP 36.8; O2SAT 100; BMI 37.0
--- NOTE | 2020-02-20 16:12 | ED.VIS.GEN ---
History of Present Illness Chief Complaint: Confusion Detail of Chief Complaint: Also complains of vertigo Informant: Patient Onset: Today - Confussion occurred today. Patient's definition of confusion when she did not know who she was with. Context: Sudden Onset Timing: Intermittent Quality: Spinning sensation lasting 1 minute Location: Spinning sensation Current Severity: - - No symptoms Maximum Severity: Moderate Worsened by: Patient not able to answer what makes it worse Relieved by: Nothing Associated Symptoms: Nausea without visual symptoms Narrative: Patient is a 29-year-old woman who presents with confusion as previously defined and spinning sensation. The spinning sensation is paroxysmal and transient. She denies double vision, blurred vision loss of vision. Denies trouble with speech or swallowing. She does report nausea but denied diaphoresis. She denied paresthesia, anesthesia or motor weakness. She is not preferentially walking towards 1 side. She has no headache. She reports history of hydrocephalus. She had a CT of the head on Thursday which revealed no evidence of hydrocephalus. She has no URI or allergic symptoms. She denies decreased hearing, ringing or ears or ear pain. Prior similar symptoms: Yes Recent Illness/Hospitalization: Yes - Past Medical History (1) Cerebral palsy Status: Chronic (2) GERD (gastroesophageal reflux disease) Status: Chronic (3) Hydrocephalus Status: Chronic Past Medical History - Allergies and Home Meds Allergies/Adverse Reactions: Allergies shellfish derived Allergy (Verified 02/20/20 14:23) Itching Opioids - Morphine Analogues Adverse Reaction (Verified 02/20/20 14:23) Nausea/Vom/Diarrhea Primary Care Physician: Tima Holland MD [Primary Care Provider] - Prior records reviewed: Yes - Reviewed ER visit for February 17 Surgical History: cholecystectomy, - - Elbow surgery Lives: Spouse/ Significant Other Smoking Status: Current every day smoker Alcohol: Rare Drugs: None - Family History Maternal Family History: Reports: Heart Disease, - - Narcolepsy Paternal Family History: Reports: - - Patient does not know paternal medical history Review of Systems General: Denies: Chills, Fever, Malaise, Subjective, Sweats, Weight loss Eyes: Denies: Visual changes - bilaterally, Blurred Vision - bilaterally, Diplopia ENT: Denies: Bilateral ear pain, Rhinorrhea, Sore throat Cardiovascular: Denies: Chest pain, Palpitations Respiratory: Denies: Dyspnea, Cough, Dyspnea on exertion Gastrointestinal: Reports: Nausea. Denies: Abdominal pain, Vomiting, Diarrhea Genitourinary: Denies: Dysuria, Hematuria, Frequency Musculoskeletal: Denies: Myalgias, Arthralgias, Neck pain, Back pain, Swelling, Extremity Pain, -, - Skin: Denies: Rash, Wounds Neurological: Denies: Headache, Weakness, Numbness Endocrine: Denies: Polyuria, Polydipsia Physical Exam Vital Signs/Narrative: Vital Signs Temp Pulse Resp BP Pulse Ox 02/20/20 14:19 98.2 F 102 H 16 154/109 H 100 Inital Vital Signs reviewed: Yes Neurological: Alert, Oriented x3, Cranial nerves II-XII grossly intact, Normal Sensation, Normal DTR, - - DTR symmetric with no clonus or Babinski sign. [id number] to finger performed without abnormality. Negative for: Normal Strength - Slight weakness left upper extremity, chronic., Normal Gait - Patient's gait is not normal due to cerebral palsy. Psychological: Depressed Diagnostic/Tx/Re-eval - Medical Decision Making Hallpike maneuver was positive. Suspect patient has benign paroxysmal positional vertigo due to cerumen impaction right external auditory canal. Since patient had a CAT scan 2 days ago and no abnormalities noted and neuro exam reveals no new focal findings it was not repeated. Cerumen has been removed from the auditory canal. Patient still has mild symptoms. Da maneuver was performed. She states her symptoms are resolved. Dr. Lee who sent patient into the emergency part was paged to discuss her symptoms and possible adverse reaction to Topamax. Patient's case was discussed with Dr. Lee. Plan is to decrease Topamax to 50 mg at bedtime. She is to call the office in the morning. She does not have history of hydrocephalus. She has history of idiopathic intracranial hypertension. She was recently seen by ophthalmology. The papilledema has resolved since the Topamax was increased from 50-100 on January 29. ED Disposition - Plan for ED Patient: Disposition: Home or Assisted Living Diagnosis: Benign paroxysmal positional vertigo of right ear, Impacted cerumen of right ear, Confusion Instructions: ED BPV Vertigo Referrals: Tima Holland MD [Primary Care Provider] - Additional Instructions: Decrease Topamax to 50 mg at bedtime. Contact Dr. Lee's office tomorrow morning.
[2020-02-20] MEDS: Carbamide Peroxide 15 ML Bottle 5 DRP OTIC (16:15)
[2020-02-20 17:54] VITALS: BP 137/81; PULSE 78; RESP 16; O2SAT 98
== END 2020-02-20 17:56 | disposition home or self-care (01) ==
PROVIDERS: Emergency Provider Emergency Medicine; PCP Family Medicine
DX: H81.11 Benign paroxysmal vertigo, right ear (principal); H61.21 Impacted cerumen, right ear; R41.0 Disorientation, unspecified; K21.9 Gastro-esophageal reflux disease without esophagitis; G80.9 Cerebral palsy, unspecified; F17.200 Nicotine dependence, unspecified, uncomplicated
CPT/HCPCS: 99283

== ENCOUNTER 2020-12-25 18:26 | Emergency (ER) | payer SELFPAY ==
[2020-12-25 18:27] VITALS: BP 158/107; PULSE 115; RESP 22; TEMP 36.3; O2SAT 97; BMI 36.8
--- NOTE | 2020-12-25 18:41 | EKG12_ITS ---
Test Reason : NEURO Blood Pressure : / mmHG Vent. Rate : 101 BPM Atrial Rate : 101 BPM P-R Int : 148 ms QRS Dur : 074 ms QT Int : 348 ms P-R-T Axes : 067 082 036 degrees QTc Int : 451 ms Sinus tachycardia Otherwise normal ECG Confirmed by GAURAV REYES, JOLLY ([id number]), scientific editor OMKAR ROY ([id number]) on 12/26/2020 2:22:37 PM Referred By: DWIGHT Confirmed By:JOLLY NOLASCO MD
--- NOTE | 2020-12-25 18:41 | CT_ITS ---
We are attempting to reach an attending provider to discuss findings. An addendum with communication details will be sent when the communication is complete. STUDY: CT HEAD STROKE PROTOCOL W/O CONTRAST INJECTION REASON FOR EXAM: Female, 30 years old. Neuro deficit, acute, stroke suspected RADIATION DOSAGE (If Supplied By Facility): CTDIvol = ( ) mGy, DLP = ( 829.85 ) mGycm TECHNIQUE: Transaxial CT imaging of the brain was performed without administration of intravenous contrast material. Individualized dose optimization techniques were used for this CT. COMPARISON: 02/18/2020. FINDINGS: Normal soft tissue structures. Normal calvarium. Mild ventricular asymmetry likely developmental.. Normal white matter tracts of the cerebral hemispheres. Normal basal ganglia and thalami. Normal brainstem. Normal cerebellum. There is no intracranial hemorrhage. There are no findings of an acute ischemic infarction. Normal visualized paranasal sinuses. No significant change since prior exam ASPECT score: 10 CT/STROKE Brain/Head without Cont IMPRESSION: Normal unenhanced CT scan of the brain. MRI recommended for more definitive evaluation if indicated Electronically Signed: Antwon Meng MD at 19:20 EDT , Service support ,
--- NOTE | 2020-12-25 18:41 | CT_ITS ---
We are attempting to reach an attending provider to discuss findings. An addendum with communication details will be sent when the communication is complete. STUDY: CTA HEAD AND NECK WITH CONTRAST REASON FOR EXAM: Female, 30 years old. Neuro deficit, acute, stroke suspected RADIATION DOSAGE (If Supplied By Facility): CTDIvol = ( 18.545 ) mGy, DLP = ( 825.44 ) mGycm TECHNIQUE: CT angiography was performed with a multi-detector CT scanner. Data acquisition was obtained from the skull base through the vertex following intravenous administration of IV 100mL Isovue-370. MIP images were reconstructed from the axial data set. Post-processing of the angiographic images was performed, with multiplanar reformation and 3D reconstruction. Individualized dose optimization techniques were used for this CT. COMPARISON: No relevant priors. FINDINGS: Normal bilateral petrous carotid arteries. Normal right cavernous carotid artery with a normal supraclinoid bifurcation. Normal left cavernous carotid artery with a normal supraclinoid bifurcation. Normal right A1 segments of the anterior cerebral artery. Normal left A1 segments of the anterior cerebral artery. Anterior communicating artery not visualized consistent with normal variant Normal bilateral A2 segments of the anterior cerebral arteries. Normal right M1 and M2 segments of the middle cerebral arteries, with a normal M1 bifurcation. Normal left M1 and M2 segments of the middle cerebral arteries, with a normal M1 bifurcation. Posterior communicating arteries are not visualized consistent with normal variant Normal bilateral vertebral arteries. Normal basilar artery with a normal basilar bifurcation. The visualized bilateral superior cerebellar (SCA) arteries are normal. Normal bilateral P1, P2 and visualized P3 segments of the posterior cerebral arteries. There is no demonstrated aneurysm of the [place]. There is no demonstrated abnormality of the visualized brain. AORTIC ARCH: Normal visualized aortic arch. Normal origins of the brachiocephalic, left common carotid, and left subclavian arteries. RIGHT CAROTID ARTERIES: Normal right common carotid artery (CCA). Normal right common carotid bulb. Normal origin of the right internal carotid (ICA) artery without a hemodynamically significant stenosis. Normal visualized cervical portion of the right internal carotid artery. Normal origin of the right external carotid artery (ECA). LEFT CAROTID ARTERIES: Normal left common carotid artery (CCA). Normal left common carotid bulb. Normal origin of the left internal carotid (ICA) artery without a hemodynamically significant stenosis. Normal visualized cervical portion of the left internal carotid artery. Normal origin of the left external carotid artery (ECA). VERTEBRAL ARTERIES: Normal bilateral vertebral arteries. CT/STROKE CTA Head AND Neck W/Con IMPRESSION: Normal CTA Head and neck with contrast. Electronically Signed: Antwon Meng MD at 19:22 EDT , Service support ,
--- NOTE | 2020-12-25 18:47 | ED.VIS.STROK ---
HPI History of Present Illness Chief Complaint: Neuro S/Sx Narrative Narrative: Patient presents with 3-1/2-hour history of left arm paresthesias, her left arm feels heavy. She has no chest pain or shortness of breath. She has no other neurological symptoms. She has no facial weakness, she has no lower extremity weakness. No slurred speech or inability to speak. No vision changes. No confusion. She does not feel off balance when she walks. She has no neck pain. She tells me she feels yucky [facility] Medical History (Updated 12/25/20 @ 19:[address] Dell Vu MD) Cerebral palsy Hydrocephalus Home Medications omeprazole [Prilosec] 0 mg PO QHS 12/25/20 [History Last Taken Unknown] Allergy/AdvReac Type Severity Reaction Status Date / Time shellfish derived Allergy Itching Verified 12/25/20 18:27 Opioids - Morphine Analogues AdvReac Nausea/Vom/ Verified 12/25/20 18:27 Diarrhea Social History Smoking Status: Former smoker ROS ROS ED ROS Narrative Past medical history: Reviewed Medications: Reviewed Social history: Noncontributory Review of systems: All systems negative except as indicated General: No fever Eyes: No visual changes ENT: No upper airway congestion, normal voice Neck: No neck pain Cardiovascular: No chest pain Respiratory: No shortness of breath or cough Gastrointestinal: No abdominal pain, nausea vomiting or diarrhea Genitourinary: No dysuria Musculoskeletal: Denies myalgias no difficulty with ambulation Skin: No rash Neurological: Left arm paresthesias as in HPI Psych: No recent behavioral changes Hematologic: No easy bleeding or easy bruising EXAM Physical Exam Narrative Exam Narrative: Physical exam General: Well nourished, Well developed, No Acute Distress Head: Normocephalic, Atraumatic Eyes: Conjunctiva not pale ENT: Moist mucous membranes Neck: Supple, Nontender, No lymphadenopathy Cardiovascular: Regular rate, Regular rhythm Respiratory: No distress, CTA bilaterally Abdomen: Soft, Nontender, Nondistended Back: Nontender, Normal Inspection. Negative for: CVA tenderness Extremities: Nontender, No edema Skin: Normal color, No rash Neurological: Decreased sensation and paresthesia left hand fingers. Negative Phalen's and Tinel's. She tells me subjectively that she has somewhat decreased sensation of her arm. Otherwise normal neurological exam including cerebellar and Romberg. Otherwise see NIH stroke scale. Psychological: Normal affect` Const Vital Signs: 12/25/20 18:27 12/25/20 18:58 12/25/20 19:02 Temperature 97.3 F L Temperature Source Temporal Pulse Rate 115 H 106 H Respiratory Rate 22 H 16 Blood Pressure 158/107 H 130/100 H Blood Pressure Mean 124 110 Pulse Ox 97 97 99 Oxygen Delivery Method Room Air Room Air Room Air STROKE Vital Signs/Narrative: Vital Signs Temp Pulse Resp BP Pulse Ox 12/25/20 19:02 106 H 16 130/100 H 99 12/25/20 18:58 97 12/25/20 18:27 97.3 F L 115 H 22 H 158/107 H 97 NIHSS Initial: 1a Level of Consciousness: 0 1b LOC Questions (Score 2 if aphasic/stupor): 0 1c LOC Commands (Only score 1st attempt): 0 2 Best Gaze (If aphasic, use reflexive mvmts.): 0 3 Visual: 0 4 Facial Palsy: 0 5 Motor Arm Right (UN = amputation/fusion): 0 5 Motor Arm Left: 0 6 Motor Leg Right: 0 6 Motor Leg Left: 0 7 Limb ataxia (Only + if out of proportion): 0 8 Sensory (Aphasia/stupor=0 or 1, coma=2): 1 9 Best Language: 0 10 Dysarthria (mute, coma=2, intubated=UN): 0 11 Extinction and Inattention (only scored if +): 0 Total Score: 1 MDM MDM MDM Narrative Medical decision making narrative: Patient has a normal CT and CT angiogram. She appears well. Her symptoms are likely peripheral. I believe she can get an outpatient work-up. If anything worsen she is to return. She did have some nausea which I treated. Lab Data Labs: Laboratory Results - last 24 hr 12/25/20 12/25/20 12/25/20 18:42 18:42 18:55 WBC 12.9 H RBC 5.17 Hgb 13.1 Hct 42.0 MCV 81.2 MCH 25.3 L MCHC 31.2 L RDW Std Deviation 42.7 RDW Coeff of Margarita 14.5 Plt Count 325 MPV 11.2 Immature Gran % (Auto) 0.500 Neut % (Auto) 59.4 Lymph % (Auto) 28.3 [place] % (Auto) 10.3 H Eos % (Auto) 1.0 Baso % (Auto) 0.5 Absolute Neuts (auto) 7.7 Absolute Lymphs (auto) 3.66 Nucleated RBC % 0 PT 12.6 INR 1.0 APTT 33.1 Sodium 137 Potassium 4.2 Chloride 106 Carbon Dioxide 24.0 Anion Gap 7 BUN 17 Creatinine 0.82 Estim Creat Clear Calc 82.98 Est GFR (MDRD) Af Amer 105 Est GFR (MDRD) Non-Af 87 BUN/Creatinine Ratio 20.7 H Glucose 91 Calcium 8.6 Troponin I High Sens < 3.0 L POC Glucose 12/25/20 18:56 WBC RBC Hgb Hct MCV MCH MCHC RDW Std Deviation RDW Coeff of Margarita Plt Count MPV Immature Gran % (Auto) Neut % (Auto) Lymph % (Auto) [place] % (Auto) Eos % (Auto) Baso % (Auto) Absolute Neuts (auto) Absolute Lymphs (auto) Nucleated RBC % PT INR APTT Sodium Potassium Chloride Carbon Dioxide Anion Gap BUN Creatinine Estim Creat Clear Calc Est GFR (MDRD) Af Amer Est GFR (MDRD) Non-Af BUN/Creatinine Ratio Glucose Calcium Troponin I High Sens POC Glucose 89 Radiography Diagnostic Testing: Radiology Impression Brain CT 12/25/20 18:41 IMPRESSION: Normal unenhanced CT scan of the brain. MRI recommended for more definitive evaluation if indicated Electronically Signed: Antwon Meng MD at 19:20 EDT , Service support , ADDENDUM: 12/25/20 193 IMPRESSION: Normal unenhanced CT scan of the brain. MRI recommended for more definitive evaluation if indicated N.B. : The above Results were Read Back by Antwon Meng MD to dell vu MD, and understanding confirmed on 12/25/2020 19:27:09 (ET). Electronically Signed: Antwon Meng MD at 19:20 EDT , Service support , Head/Neck CTA 12/25/20 18:41 IMPRESSION: Normal CTA Head and neck with contrast. Electronically Signed: Antwon Meng MD at 19:22 EDT , Service support , ADDENDUM: 12/25/201933 IMPRESSION: Normal CTA Head and neck with contrast. N.B. : The above Results were Read Back by Antwon Meng MD to dell vu and understanding confirmed on 12/25/2020 19:27:05 (ET). Electronically Signed: Antwon Meng MD at 19:22 EDT , Service support , Discharge Plan Triage Chief Complaint: Neuro S/Sx ED Provider: Dell Vu Dx/Rx/DC Orders Clinical Impression: Paresthesia Instructions: ED Paraesthesias Prescriptions: No Action omeprazole [Prilosec] 20 mg Capsule,Delayed Release(Dr/Ec) 0 mg PO QHS RF: 0 Primary Care Provider: Tima Holland Referrals: Cheo David MD [STAFF PHYSICIAN] - 2 Days Tima Holland MD [Primary Care Provider] - Disposition Disposition: Home, Self Care
[2020-12-25 18:48] LABS: Absolute Lymphocyte Count 3.66 X10^3/uL (0.83-4.51); Absolute Neutrophil Count 7.7 X10^3/uL (2.0-7.7); Basophil# 0.06 X10^3/uL; Basophil% 0.5 % (0-1); Eosinophil# 0.13 X10^3/uL; Hemoglobin 13.1 g/dL (12.0-15.0); Lymphocyte # 3.66 X10^3/ul (0.83-4.51); Lymphocyte % 28.3 % (19-41); Mean Corp Hgb Conc 31.2 g/dL (32-36); Mean Corpuscular Hgb 25.3 pg (27.0-32.0); Mean Corpuscular Volume 81.2 fL (81-99); Mean Platelet Vol. 11.2 fl (6.2-12.0); Monocyte# 1.33 X10^3/uL; Monocyte% 10.3 % (0-10); NRBC Flagged by Analyzer 0 % (0-5); Neutrophil # 7.68 X10^3/uL (2.7-7.7); Neutrophil % 59.4 % (47-70); Platelet Count 325 K/mm3 (150-450); RBC Distribution Width CV 14.5 % (11.6-14.6); RBC Distribution Width SD 42.7 fl (35.1-43.9); Red Blood Count 5.17 M/mm3 (4.2-5.4); White Blood Count 12.9 K/mm3 (4.4-11.0)
[2020-12-25 18:58] VITALS: O2SAT 97
[2020-12-25 19:02] VITALS: BP 130/100; PULSE 106; PULSE 107; RESP 16; RESP 20; O2SAT 98; O2SAT 99
[2020-12-25 19:06] LABS: Anion Gap 7 (5-15); BUN 17 mg/dL (7-18); BUN/Creat Ratio 20.7 RATIO (10-20); Calcium,Total 8.6 mg/dL (8.5-10.1); Chloride 106 mmol/L (98-107); Creatinine, Serum 0.82 mg/dL (0.55-1.02); EST Glomerular Filtration Rate 87 mL/min (>60); Est Glom Filt Rate - Afr Amer 105 mL/min (>60); Estimated Creatinine Clearance 82.98 ml/min; Glucose 91 mg/dL (74-106); Potassium 4.2 mmol/L (3.5-5.1); Sodium Level 137 mmol/L (136-145); Troponin-I HS < 3.0 pg/mL (3.0-53.7)
--- NOTE | 2020-12-25 19:08 | ED.RN ---
PER [facility] NEUROLOGIST, NO TPA RECOMMENDED, BELIEVES SX ARE PERIPHERAL IN NATURE. DR. AZUL INFORMED.
[2020-12-25 19:09] VITALS: BMI 36.8
[2020-12-25 19:11] LABS: Bedside Glucose 89 mg/dL (70-110)
[2020-12-25 19:13] LABS: Partial Thromboplast Time 33.1 Seconds (24.1-36.2); Prothrombin Time (Protime)PT. 12.6 SECONDS (11.7-14.9)
--- NOTE | 2020-12-25 19:19 | RAD_ITS ---
STUDY: X-RAY CHEST REASON FOR EXAM: Female, 30 years old. Neuro deficit, acute, stroke suspected TECHNIQUE: AP portable COMPARISON: 09/21/2019 FINDINGS: The lungs are clear and expanded. There is no demonstrated pleural abnormality. Normal size heart. Normal mediastinum and сергей. Normal visualized pulmonary arteries. Normal visualized aortic arch and descending thoracic aorta. Normal visualized thoracic spine. Normal visualized ribs, clavicles, and shoulders. There is no demonstrated abnormality of the visualized soft tissue structures of the upper abdomen. No significant change since prior exam RAD/Chest 1 View IMPRESSION: Normal x-ray examination of the chest. Electronically Signed: Antwon Meng MD at 21:15 EDT , Service support ,
[2020-12-25 19:30] VITALS: BP 145/86; PULSE 102; RESP 22; O2SAT 99
[2020-12-25] MEDS: Ondansetron 4 MG/2 ML Vial IV (20:01)
== END 2020-12-25 20:10 | disposition home or self-care (01) ==
PROVIDERS: Emergency Provider Emergency Medicine; PCP Family Medicine
DX: R20.2 Paresthesia of skin (principal); Z79.899 Other long term (current) drug therapy; Z87.891 Personal history of nicotine dependence
CPT/HCPCS: 70450; 70496; 70498; 71045; 80048; 82962; 84484; 85025; 85610; 85730; 93005; 96374; 99284; Q9967; A4216; J2405

== ENCOUNTER 2022-09-23 11:49 | Emergency (ER) | payer OTHER, SELFPAY ==
[2022-09-23 11:50] VITALS: BP 157/118; PULSE 110; RESP 18; TEMP 36.1; O2SAT 97; BMI 39.6
--- NOTE | 2022-09-23 12:05 | EDS_ITS ---
HPI History of Present Illness Chief Complaint: Nausea/Vomiting/Diarrhea Detail of Chief Complaint: Vomiting and diarrhea Informant: patient Narrative Narrative: Patient presents with mom and diarrhea for the last 3 days. Patient denies sick contacts. She is only thrown up about 3 times but states that she is having severe watery stools. She has tried Pepto-Bismol but not having much relief of the diarrhea. Patient went to urgent care and was referred to the emergency department. She describes some diffuse abdominal pain and cramping. She denies any blood in her stool or black tarry stool. She denies eating any undercooked or unusual foods. [facility] Medical History (Updated 09/23/22 @ 14:[address] Shonda Nguyen, DO) Cerebral palsy Hydrocephalus Home Medications omeprazole 20 mg capsule,delayed release 0 mg PO QHS 12/25/20 [History Last Taken Unknown] dicyclomine 10 mg capsule 20 mg PO TIDAC #20 CAPSULES 09/23/22 [Rx Last Taken Unknown] ondansetron 4 mg disintegrating tablet 4 mg PO Q8H PRN PRN Nausea #10 tabs 09/23/22 [Rx Last Taken Unknown] Allergy/AdvReac Type Severity Reaction Status Date / Time shellfish derived Allergy Itching Verified 09/23/22 11:50 Opioids - Morphine Analogues AdvReac Nausea/Vom/ Verified 09/23/22 11:50 Diarrhea Social History Smoking Status: Former smoker ROS ROS ED Review of Systems ROS Unobtainable: other Constitutional Constitutional ED: Reports lethargy; Denies chills, fever(s), sweats or weight loss Eyes Eyes: Denies blurry vision, change in vision or diplopia ENT ENT ED: Denies rhinorrhea or sore throat Cardiovascular Cardiovascular: Denies chest pain, orthopnea or racing heartbeat Respiratory/Chest Respiratory/Chest: Denies cough, dyspnea, dyspnea on exertion, orthopnea or sputum Gastrointestinal Gastrointestinal: Reports abdominal pain, diarrhea, nausea and vomiting Genitourinary Genitourinary ED: Denies dysuria, hematuria or urinary frequency Musculoskeletal Musculoskeletal: Denies arthralgias, back pain, myalgias or neck pain Integumentary Denies abscess, Abrasions or rash Neurologic Neurologic: Denies headache(s) or weakness Psychiatric Psychiatric: Denies anxiety, depression or suicidal thoughts Endocrine Endocrinology: Denies polydipsia, polyphagia or polyuria Hematologic/Lymphatic Hematologic/Lymphatic: Denies easy bleeding, easy bruising or lymphadenopathy Allergic/Immunologic Allergic/Immunologic ED: Denies mouth swelling, tongue swelling or urticaria EXAM Physical Exam Const Vital Signs: 09/23/22 11:50 Temperature 97 F L Temperature Source Temporal Pulse Rate 110 H Respiratory Rate 18 Blood Pressure 157/118 H Blood Pressure Mean 131 Pulse Ox 97 Oxygen Delivery Method Room Air Positive well nourished and well developed General Appearance ED: well developed and NAD HEENT Reports TM's clear and moist mucous membranes normocephalic and atraumatic; Negative for trauma or tenderness Tympanic Membrane ED: Yes TM's clear Eyes PERRL and EOMs intact bilaterally General Eye ED: Negative for pale conjunctiva or scleral icterus Neck no lymphadenopathy, supple and no JVD General: Negative for tenderness Chest Wall inspection of chest normal and palpation of chest normal Chest: Negative for tenderness Resp normal respiratory effort and clear to auscultation bilaterally Effort and Inspection: Negative for respiratory distress or pain with movement Auscultation: Negative for rhonchi, wheezes or diminished lung sounds Cardio regular rate, regular rhythm, S1 normal heart sound, S2 normal heart sound and no murmurs Peripheral Pulses: pulses 2+ throughout GI normal to inspection, nondistended, normoactive bowel sounds, non-distended and no masses GI Narrative: Mild diffuse tenderness. There is no rebound, rigidity, or. Signs. No mass palpated. Back/Spine no CVA tenderness and no thoracic nor lumbar tenderness Extremity normal to inspection General Extremety ED: Negative for edema General Extremity: Negative for edema Neuro oriented x3, CN's II-XII intact bilaterally, no sensory deficits noted and gait normal Sensorium / Orientation: awake, alert, oriented to person, oriented to place and oriented to time Motor Exam: strength 5/5 throughout and strength abnormal Psych mental status grossly normal Skin no rashes or lesions noted and no wounds MDM MDM MDM Narrative Medical decision making narrative: Patient presents with diarrhea and vomiting likely from gastroenteritis. Abdomen is benign. IV line will be established. She will be given a liter fluid bolus and lab work-up will be obtained. Patient was given a liter of the same fluid bolus. CBC with differential obtained was unremarkable. Chemistries showed a slight depressed potassium of 3.3 for which I did write her for 40 mEq of potassium chloride p.o. Lactate was normal 0.8. Patient was given Bentyl IM as well as Zofran and Imodium. Patient had stool ordered for enteric pathogens however she was unable to give a stool sample. Clinically I suspect a viral gastroenteritis. After treatment she is feeling markedly improved. She had no vomiting. Her abdominal pain is resolved. And patient is comfortable going home. I will write her a prescription for Bentyl and Zofran. She is to use Imodium as needed [id number]. Patient advised to return if worsening pain, persistent vomiting, diarrhea, dehydration, or condition worsening way. Lab Data Attestation: I reviewed the patient's lab results. Labs: Laboratory Results - last 24 hr 09/23/22 09/23/22 09/23/22 12:30 12:30 12:30 WBC 6.8 RBC 5.19 Hgb 13.1 Hct 42.1 MCV 81.1 MCH 25.2 L MCHC 31.1 L RDW Std Deviation 45.4 H RDW Coeff of Margarita 15.3 H Plt Count 302 MPV 11.1 Immature Gran % (Auto) 0.300 Neut % (Auto) 64.2 Lymph % (Auto) 22.3 [place] % (Auto) 11.9 H Eos % (Auto) 1.0 Baso % (Auto) 0.3 Absolute Neuts (auto) 4.4 Absolute Lymphs (auto) 1.52 Nucleated RBC % 0 Sodium 139 Potassium 3.3 L Chloride 112 H Carbon Dioxide 21.0 Anion Gap 6 BUN 15 Creatinine 0.82 Estim Creat Clear Calc 85.05 Est GFR (MDRD) Af Amer 104 Est GFR (MDRD) Non-Af 86 BUN/Creatinine Ratio 18.3 Glucose 118 H Lactic Acid 0.8 Calcium 8.9 HCG, Quant 09/23/22 12:30 WBC RBC Hgb Hct MCV MCH MCHC RDW Std Deviation RDW Coeff of Margarita Plt Count MPV Immature Gran % (Auto) Neut % (Auto) Lymph % (Auto) [place] % (Auto) Eos % (Auto) Baso % (Auto) Absolute Neuts (auto) Absolute Lymphs (auto) Nucleated RBC % Sodium Potassium Chloride Carbon Dioxide Anion Gap BUN Creatinine Estim Creat Clear Calc Est GFR (MDRD) Af Amer Est GFR (MDRD) Non-Af BUN/Creatinine Ratio Glucose Lactic Acid Calcium HCG, Quant < 1 Discharge Plan Triage Chief Complaint: Nausea/Vomiting/Diarrhea ED Provider: Shonda Nguyen Dx/Rx/DC Orders Clinical Impression: Viral gastroenteritis Instructions: Viral Gastroenteritis Prescriptions: New ondansetron [ondansetron] 4 mg tablet,disintegrating 4 mg PO Q8H PRN PRN (Reason: Nausea) Qty: 10 0RF dicyclomine 10 mg capsule 20 mg PO TIDAC Qty: 20 0RF No Action omeprazole [Prilosec] 20 mg Capsule,Delayed Release(Dr/Ec) 0 mg PO QHS Primary Care Provider: Tima Holland Referrals: Tima Holland MD [Primary Care Provider] - 3-5 Days Disposition Disposition: Home, Self Care
[2022-09-23 12:47] LABS: Absolute Lymphocyte Count 1.52 X10^3/uL (0.83-4.51); Absolute Neutrophil Count 4.4 X10^3/uL (2.0-7.7); Basophil# 0.02 X10^3/uL; Basophil% 0.3 % (0-1); Eosinophil# 0.07 X10^3/uL; Hematocrit 42.1 % (37-47); Hemoglobin 13.1 g/dL (12.0-15.0); Lymphocyte # 1.52 X10^3/ul (0.83-4.51); Lymphocyte % 22.3 % (19-41); Mean Corp Hgb Conc 31.1 g/dL (32-36); Mean Corpuscular Hgb 25.2 pg (27.0-32.0); Mean Corpuscular Volume 81.1 fL (81-99); Mean Platelet Vol. 11.1 fl (6.2-12.0); Monocyte# 0.81 X10^3/uL; Monocyte% 11.9 % (0-10); NRBC Flagged by Analyzer 0 % (0-5); Neutrophil # 4.38 X10^3/uL (2.7-7.7); Neutrophil % 64.2 % (47-70); Platelet Count 302 K/mm3 (150-450); RBC Distribution Width CV 15.3 % (11.6-14.6); RBC Distribution Width SD 45.4 fl (35.1-43.9); Red Blood Count 5.19 M/mm3 (4.2-5.4); White Blood Count 6.8 K/mm3 (4.4-11.0)
[2022-09-23] MEDS: Dicyclomine 20 MG/2 ML Vial IM (12:50)
[2022-09-23] MEDS: Ondansetron 4 MG/2 ML Vial IV (12:50)
[2022-09-23] MEDS: Loperamide 2 MG Capsule 4 MG PO (12:50)
[2022-09-23] MEDS: 0.9% Normal Saline 1,000 ML 1000 ML IV (12:50)
[2022-09-23 12:59] LABS: Anion Gap 6 (5-15); BUN 15 mg/dL (7-18); BUN/Creat Ratio 18.3 RATIO (10-20); Calcium,Total 8.9 mg/dL (8.5-10.1); Chloride 112 mmol/L (98-107); Creatinine, Serum 0.82 mg/dL (0.55-1.02); EST Glomerular Filtration Rate 86 mL/min (>60); Est Glom Filt Rate - Afr Amer 104 mL/min (>60); Estimated Creatinine Clearance 85.05 ml/min; Glucose 118 mg/dL (74-106); Potassium 3.3 mmol/L (3.5-5.1); Sodium Level 139 mmol/L (136-145)
[2022-09-23 13:09] LABS: Lactic Acid 0.8 mmol/L (0.4-1.9)
[2022-09-23] MEDS: Potassium Chloride Oral Tablet 20 MEQ 40 MEQ PO (13:15)
[2022-09-23 13:44] LABS: hCG Titer Quant., Serum < 1 mIU/mL (1-3)
[2022-09-23 14:14] VITALS: BP 134/78; PULSE 72; RESP 16; TEMP 36.6; O2SAT 100
== END 2022-09-23 14:52 | disposition home or self-care (01) ==
PROVIDERS: Emergency Provider Emergency Medicine; PCP Family Medicine; Visit Provider Emergency Medicine
DX: A08.4 Viral intestinal infection, unspecified (principal); E87.6 Hypokalemia; Z87.891 Personal history of nicotine dependence
CPT/HCPCS: 80048; 83605; 84702; 85025; 96361; 96372; 96374; 99284; J7030; A4216; J2405